=== PATIENT | female | born 1970 | race African-American/Black ===

== ENCOUNTER 2017-11-15 07:37 | Inpatient (IN) | payer SELFPAY ==
[~2017-11-15] VITALS: Ht 149.9 cm; Wt 73.9 kg
[2017-11-15] MEDS ORDERED: LOSA25TA12 PO (07:54)
[2017-11-15] MEDS ORDERED: CLON0.1T PO (07:54)
[2017-11-15] MEDS ORDERED: HYDR25TA PO (07:54)
[2017-11-15] MEDS ORDERED: MORPHINE SULFATE 4 MG/ML CPJ (NOT FOR IM USE) IV STA (08:15)
[2017-11-15] MEDS ORDERED: SODIUM CHLORIDE 0.9% 1,000 ML IV ONE (08:15)
[2017-11-15] MEDS ORDERED: ONDANSETRON HCL 4MG/2ML VIAL IV STA (08:15)
[2017-11-15 08:34] LABS: BASOPHILS % 0.6 % (0.0-2.0); EOSINOPHILS % 1.4 % (0.0-5.0); HEMATOCRIT. 36.3 % (36.0-48.0); HEMOGLOBIN. 11.9 g/dL (12.0-16.0); LYMPHOCYTES % 29.4 % (20.0-50.0); MEAN CORPUSCULAR HEMOGLOBIN 30.2 pg (28.0-32.0); MEAN CORPUSCULAR VOLUME 92.4 fL (81.0-99.0); MEAN PLATELET VOLUME 7.6 fl (7.4-10.4); MONOCYTES % 8.5 % (2.0-8.0); NEUTROPHILS % 60.1 % (40.0-76.0); PLATELET 275 x1000/uL (130-400); RED BLOOD CELL COUNT 3.93 mill/uL (4.2-5.4); RED CELL DISTRIBUTION WIDTH 14.7 % (11.6-14.6)
[2017-11-15 08:39] LABS: PROTHROMBIN TIME 10.1 sec (9.4-11.6)
[2017-11-15 08:49] LABS: CHLORIDE 105 mEq/L (98-107); TROPONIN I < 0.02 ng/mL (0.00-0.04)
[2017-11-15 09:09] LABS: HCG SCREEN NEGATIVE
[2017-11-15] MEDS ORDERED: SODIUM CHLORIDE 0.45% 1,000 ML IV SCH (12:32)
[2017-11-15] MEDS ORDERED: HYDROCODONE/ACETAMINOPHEN 5/325MG TABLET PO PRN (12:45)
[2017-11-15] MEDS ORDERED: LORAZEPAM 2MG/ML CPJ IV PRN (12:45)
[2017-11-15] MEDS ORDERED: DOCUSATE SODIUM 100MG CAPSULE PO PRN (12:45)
[2017-11-15] MEDS ORDERED: ACETAMINOPHEN 325MG TABLET PO PRN (12:45)
[2017-11-15] MEDS ORDERED: IPRATROPIUM/ALBUTEROL 0.5-3(2.5)MG/3ML NEB INH PRN (12:45)
[2017-11-15] MEDS ORDERED: NA PHOS,M-B/NA PHOS,DI-BA ENEMA 118ML PR PRN (12:45)
[2017-11-15] MEDS ORDERED: MAGNESIUM/ALUMINUM HYDROXIDE/SIMETHICONE 30ML UDC PO PRN (12:45)
[2017-11-15] MEDS ORDERED: CLONIDINE 0.1MG TABLET PO PRN (12:45)
[2017-11-15] MEDS ORDERED: DIPHENHYDRAMINE 50MG/ML VIAL IV PRN (12:45)
[2017-11-15] MEDS ORDERED: GUAIFENESIN 200MG/10ML SUGAR FREE UDC PO PRN (12:45)
[2017-11-15] MEDS: MORPHINE SULFATE 4 MG/ML CPJ (NOT FOR IM USE) IV PRN ×3 (13:35→22:02)
[2017-11-15] MEDS: ONDANSETRON HCL 4MG/2ML VIAL IV PRN ×3 (13:35→22:07)
[2017-11-15 17:01] LABS: CHLORIDE 103 mEq/L (98-107); TROPONIN I < 0.02 ng/mL (0.00-0.04)
[2017-11-15 19:14] VITALS: BP 161/80
[2017-11-15 19:19] VITALS: BP 161/80
[2017-11-15] MEDS: CLONIDINE 0.1MG TABLET PO SCH (20:38)
[2017-11-15] MEDS ORDERED: LOSARTAN POTASSIUM 25 MG TABLET PO SCH (21:00)
[2017-11-15] MEDS ORDERED: ENOXAPARIN 40MG/0.4ML SYR SUBCUT SCH (21:00)
[2017-11-16 00:01] VITALS: BP_SYST 118; BP_SYST 128; BP_SYST 134; BP_DIAS 63; BP_DIAS 71; BP_DIAS 75
[2017-11-16] MEDS: MORPHINE SULFATE 4 MG/ML CPJ (NOT FOR IM USE) IV PRN ×2 (02:23→06:13)
[2017-11-16 03:32] LABS: *BARBITURATES SCREEN URINE NEGATIVE (NEGATIVE); *BENZODIAZEPINES SCREEN URINE NEGATIVE (NEGATIVE); *COCAINE SCREEN URINE NEGATIVE (NEGATIVE); CANNABINOID URINE SCREEN NEGATIVE (NEGATIVE); METHADONE URINE SCREEN NEGATIVE (NEGATIVE); PHENCYCLIDINE URINE SCREEN NEGATIVE (NEGATIVE)
[2017-11-16 03:57] LABS: OPIATES URINE SCREEN PRESUMTIVE POSITIVE (NEGATIVE)
[2017-11-16 03:58] LABS: *AMPHETAMINES SCREEN URINE NEGATIVE (NEGATIVE)
[2017-11-16 04:00] VITALS: BP 131/74
[2017-11-16] MEDS: CLONIDINE 0.1MG TABLET PO SCH (05:27)
[2017-11-16] MEDS: ONDANSETRON HCL 4MG/2ML VIAL IV PRN (06:12)
[2017-11-16 06:54] LABS: BASOPHILS % 0.4 % (0.0-2.0); EOSINOPHILS % 0.6 % (0.0-5.0); HEMATOCRIT. 36.9 % (36.0-48.0); HEMOGLOBIN. 12.4 g/dL (12.0-16.0); MEAN CORPUSCULAR HEMOGLOBIN 31.4 pg (28.0-32.0); MEAN CORPUSCULAR VOLUME 93.6 fL (81.0-99.0); MEAN PLATELET VOLUME 8.1 fl (7.4-10.4); MONOCYTES % 7.4 % (2.0-8.0); NEUTROPHILS % 71.6 % (40.0-76.0); PLATELET 239 x1000/uL (130-400); RED BLOOD CELL COUNT 3.94 mill/uL (4.2-5.4)
[2017-11-16 07:33] LABS: CHLORIDE 102 mEq/L (98-107)
[2017-11-16 07:59] LABS: HDL CHOLESTEROL 62 mg/dL (40-59); LDL CHOLESTEROL 103 mg/dL (5-100); T4 FREE 1.12 ng/dL (0.76-1.46)
[2017-11-16 08:00] VITALS: BP 122/74
[2017-11-16 08:04] VITALS: BP 122/74
[2017-11-16] MEDS ORDERED: ASPIRIN 81MG EC TABLET PO SCH (09:00)
[2017-11-16] MEDS ORDERED: HYDROCHLOROTHIAZIDE 25MG TABLET PO SCH (09:00)
== END 2017-11-16 08:40 | disposition home or self-care (01) | DRG 204 ==
LOC: ER 07:45 → 7WST 11:50 → ENRESERV 15:53
PROVIDERS: ADMIT Internal Medicine; ATTEND Internal Medicine
DX: R55 Syncope and collapse (principal); I10 Essential (primary) hypertension; D64.9 Anemia, unspecified; R73.9 Hyperglycemia, unspecified; R07.9 Chest pain, unspecified; E86.0 Dehydration; I25.10 Atherosclerotic heart disease of native coronary artery without angina pectoris; R32 Unspecified urinary incontinence; W18.30XA Fall on same level, unspecified, initial encounter; Y93.89 Activity, other specified; Y92.89 Other specified places as the place of occurrence of the external cause; Y99.8 Other external cause status; Z79.899 Other long term (current) drug therapy; Z82.0 Family history of epilepsy and other diseases of the nervous system; Z88.0 Allergy status to penicillin; I25.2 Old myocardial infarction; Z82.3 Family history of stroke; Z82.49 Family history of ischemic heart disease and other diseases of the circulatory system; Z90.49 Acquired absence of other specified parts of digestive tract; Z90.710 Acquired absence of both cervix and uterus
CPT/HCPCS: 36415; 70450; 71045; 80048; 80053; 80061; 80305; 82962; 83880; 84439; 84443; 84484; 84703; 85025; 85610; 93005; 96361; 96374; 96375; 99285; J1650; J2270; J2405; J7030

== ENCOUNTER 2017-11-19 09:27 | Inpatient (IN) | payer SELFPAY ==
[~2017-11-19] VITALS: Ht 149.9 cm; Wt 71.7 kg
[~2017-11-19 09:27] MED LIST: CLON0.1T PO; HYDR25TA PO; LOSA25TA12 PO
[2017-11-19] MEDS ORDERED: MORPHINE SULFATE 4 MG/ML CPJ (NOT FOR IM USE) IV STA (10:06)
[2017-11-19] MEDS ORDERED: ONDANSETRON HCL 4MG/2ML VIAL IV STA (10:06)
[2017-11-19] MEDS ORDERED: LEVOFLOXACIN 750MG PREMIX 150 ML IV ONE (10:15)
[2017-11-19] MEDS ORDERED: ACETAMINOPHEN 325MG TABLET PO ONE (10:15)
[2017-11-19] MEDS ORDERED: OSELTAMIVIR 75MG CAPSULE PO ONE (10:15)
[2017-11-19] MEDS ORDERED: SODIUM CHLORIDE 0.9% 1000ML BAG (SEPSIS BOLUS) IV ONE (10:15)
[2017-11-19 10:34] LABS: BASOPHILS % 0.4 % (0.0-2.0); EOSINOPHILS % 0.6 % (0.0-5.0); HEMATOCRIT. 34.8 % (36.0-48.0); HEMOGLOBIN. 11.5 g/dL (12.0-16.0); LYMPHOCYTES % 20.6 % (20.0-50.0); MEAN CORPUSCULAR HEMOGLOBIN 30.4 pg (28.0-32.0); MEAN CORPUSCULAR VOLUME 91.8 fL (81.0-99.0); MEAN PLATELET VOLUME 8.3 fl (7.4-10.4); MONOCYTES % 10.3 % (2.0-8.0); NEUTROPHILS % 68.1 % (40.0-76.0); PLATELET 137 x1000/uL (130-400); RED BLOOD CELL COUNT 3.79 mill/uL (4.2-5.4); RED CELL DISTRIBUTION WIDTH 14.8 % (11.6-14.6)
[2017-11-19 10:45] LABS: D-DIMER 0.52 mg/L FEU (<0.50); INR 1.1; PARTIAL THROMBOPLASTIN TIME 29.9 sec (23.4-31.0); PROTHROMBIN TIME 10.9 sec (9.4-11.6)
[2017-11-19 10:52] LABS: CHLORIDE 98 mEq/L (98-107); TROPONIN I < 0.02 ng/mL (0.00-0.04)
[2017-11-19 11:12] LABS: CLARITY URINE CLEAR (CLEAR); COLOR URINE YELLOW (YELLOW); KETONES URINE NEGATIVE (NEGATIVE); LEUKOCYTE ESTERASE URINE NEGATIVE (NEGATIVE); NITRITE URINE NEGATIVE (NEGATIVE); OCCULT BLOOD URINE NEGATIVE (NEGATIVE); PROTEIN URINE NEGATIVE (NEGATIVE); SPECIFIC GRAVITY URINE 1.015 (1.005-1.030); UROBILINOGEN URINE 0.2 E.U./dL (0.2-1.0)
[2017-11-19] MEDS ORDERED: IOHEXOL-350 100 ML BOTTLE ONE (12:26)
[2017-11-19] MEDS ORDERED: ASPIRIN 325MG EC TABLET PO ONE (12:45)
[2017-11-19] MEDS ORDERED: MORPHINE SULFATE 4 MG/ML CPJ (NOT FOR IM USE) IV ONE (13:45)
[2017-11-19] MEDS ORDERED: DOCUSATE SODIUM 100MG CAPSULE PO PRN (17:00)
[2017-11-19] MEDS ORDERED: ACETAMINOPHEN 325MG TABLET PO PRN (17:00)
[2017-11-19] MEDS ORDERED: IPRATROPIUM/ALBUTEROL 0.5-3(2.5)MG/3ML NEB INH PRN (17:00)
[2017-11-19] MEDS ORDERED: CLONIDINE 0.1MG TABLET PO PRN (17:00)
[2017-11-19] MEDS ORDERED: GUAIFENESIN 200MG/10ML SUGAR FREE UDC PO PRN (17:00)
[2017-11-19 18:35] VITALS: BP 137/81
[2017-11-19 18:40] VITALS: BP 137/81
[2017-11-19 20:00] VITALS: BP 115/47
[2017-11-19] MEDS: ENOXAPARIN 40MG/0.4ML SYR SUBCUT SCH (21:55)
[2017-11-19] MEDS: HYDROCODONE/ACETAMINOPHEN 5/325MG TABLET PO PRN (21:56)
[2017-11-19] MEDS: OSELTAMIVIR 75MG CAPSULE PO SCH (21:56)
[2017-11-20] VITALS: BP 132/77
[2017-11-20 04:00] VITALS: BP 153/74
[2017-11-20] MEDS ORDERED: POTASSIUM CHLORIDE 20MEQ TABLET SR PO SCH (04:45)
[2017-11-20] MEDS: SODIUM CHLORIDE 0.9% 1,000 ML IV SCH ×3 (04:57→19:04)
[2017-11-20 07:44] LABS: BASOPHILS % 0.6 % (0.0-2.0); EOSINOPHILS % 0.7 % (0.0-5.0); HEMATOCRIT. 36.7 % (36.0-48.0); HEMOGLOBIN. 12.1 g/dL (12.0-16.0); LYMPHOCYTES % 42.6 % (20.0-50.0); MEAN CORPUSCULAR HEMOGLOBIN 30.3 pg (28.0-32.0); MEAN PLATELET VOLUME 8.8 fl (7.4-10.4); MONOCYTES % 10.7 % (2.0-8.0); NEUTROPHILS % 45.4 % (40.0-76.0); PLATELET 135 x1000/uL (130-400); RED BLOOD CELL COUNT 3.99 mill/uL (4.2-5.4); RED CELL DISTRIBUTION WIDTH 15.1 % (11.6-14.6)
[2017-11-20 08:00] VITALS: BP 128/63
[2017-11-20 08:26] LABS: CHLORIDE 104 mEq/L (98-107)
[2017-11-20] MEDS: OSELTAMIVIR 75MG CAPSULE PO SCH ×2 (08:35→20:34)
[2017-11-20] MEDS: HYDROCODONE/ACETAMINOPHEN 5/325MG TABLET PO PRN (08:36)
[2017-11-20] MEDS: AMLODIPINE 10MG TABLET PO SCH ×2 (08:36→08:37)
[2017-11-20] MEDS: ASPIRIN 81MG EC TABLET PO SCH (08:36)
[2017-11-20 08:44] LABS: HDL CHOLESTEROL 62 mg/dL (40-59); LDL CHOLESTEROL 89 mg/dL (5-100)
[2017-11-20] MEDS: MORPHINE SULFATE 4 MG/ML CPJ (NOT FOR IM USE) IV PRN ×3 (11:18→21:12)
[2017-11-20] MEDS: ONDANSETRON HCL 4MG/2ML VIAL IV PRN ×3 (11:19→21:11)
[2017-11-20] MEDS ORDERED: LEVOFLOXACIN 500MG PREMIX 100 ML IV SCH (13:00)
[2017-11-20] MEDS: LEVOFLOXACIN 500MG PREMIX 100 ML IV SCH (14:23)
[2017-11-20 20:15] VITALS: BP 131/74
[2017-11-20] MEDS: ENOXAPARIN 40MG/0.4ML SYR SUBCUT SCH (20:34)
[2017-11-20 20:40] LABS: *AMPHETAMINES SCREEN URINE NEGATIVE (NEGATIVE); *BARBITURATES SCREEN URINE NEGATIVE (NEGATIVE); *BENZODIAZEPINES SCREEN URINE NEGATIVE (NEGATIVE); *COCAINE SCREEN URINE NEGATIVE (NEGATIVE); CANNABINOID URINE SCREEN NEGATIVE (NEGATIVE); METHADONE URINE SCREEN NEGATIVE (NEGATIVE); PHENCYCLIDINE URINE SCREEN NEGATIVE (NEGATIVE)
[2017-11-20 20:44] LABS: OPIATES URINE SCREEN PRESUMTIVE POSITIVE (NEGATIVE)
[2017-11-21] VITALS: BP 129/73
[2017-11-21] MEDS: MORPHINE SULFATE 4 MG/ML CPJ (NOT FOR IM USE) IV PRN ×6 (00:58→22:29)
[2017-11-21] MEDS: ONDANSETRON HCL 4MG/2ML VIAL IV PRN ×3 (01:00→13:54)
[2017-11-21 04:30] VITALS: BP 125/75
[2017-11-21] MEDS: OSELTAMIVIR 75MG CAPSULE PO SCH ×2 (08:43→20:59)
[2017-11-21] MEDS: AMLODIPINE 10MG TABLET PO SCH (08:43)
[2017-11-21] MEDS: ASPIRIN 81MG EC TABLET PO SCH (08:43)
[2017-11-21] MEDS: SODIUM CHLORIDE 0.9% 1,000 ML IV SCH ×2 (08:44→21:01)
[2017-11-21] MEDS: LEVOFLOXACIN 500MG PREMIX 100 ML IV SCH (16:45)
[2017-11-21 20:00] VITALS: BP 134/68
[2017-11-21] MEDS: ENOXAPARIN 40MG/0.4ML SYR SUBCUT SCH (20:59)
[2017-11-22] VITALS: BP 128/71
[2017-11-22] MEDS: MORPHINE SULFATE 4 MG/ML CPJ (NOT FOR IM USE) IV PRN ×2 (02:32→06:34)
[2017-11-22 04:00] VITALS: BP 128/74
[2017-11-22 06:34] VITALS: BP 128/74
== END 2017-11-22 07:30 | disposition left against medical advice (07) | DRG 204 ==
LOC: ER 09:58 → EDBEDREQ 10:11 → 5WST 12:45 → EDBEDREQTM 12:45 → EDBEDREQSVC 12:45 → EDBEDREQ 12:45 → ENRESERV 15:33 → SUPCPDRO 16:47 → 5WST 18:54
PROVIDERS: ADMIT Hospitalist; ATTEND Hospitalist
DX: R55 Syncope and collapse (principal); I10 Essential (primary) hypertension; I25.10 Atherosclerotic heart disease of native coronary artery without angina pectoris; J10.1 Influenza due to other identified influenza virus with other respiratory manifestations; R32 Unspecified urinary incontinence; Z90.49 Acquired absence of other specified parts of digestive tract; Z90.710 Acquired absence of both cervix and uterus; I25.2 Old myocardial infarction; Z88.0 Allergy status to penicillin
CPT/HCPCS: 36415; 70450; 71045; 71275; 72125; 80053; 80061; 80305; 81003; 83605; 83690; 83880; 84484; 85025; 85379; 85610; 85730; 86850; 86900; 87040; 87086; 87804; 93005; 93970; 96365; 96375; 96376; 99285; J1650; J1956; J2270; J2405; J7030; Q9967